=== PATIENT | male | born 1955 | race Caucasian/White ===

== ENCOUNTER 2021-05-11 11:06 | Outpatient (CLI) | payer MEDICARE, OTHER ==
[2021-05-11 23:41] LABS: SARS-CoV-2 PCR by NAA Not Detected (NotDetected)
== END 2021-05-11 11:07 | disposition home or self-care (01) ==
LOC: CSHLAB 11:06
PROVIDERS: ATTEND Surgery
DX: Z20.822 Contact with and (suspected) exposure to COVID-19 (principal); C09.8 Malignant neoplasm of overlapping sites of tonsil
CPT/HCPCS: U0003; U0005

== ENCOUNTER 2021-05-16 06:03 | Day surgery (SDC) | payer MEDICARE, OTHER ==
[2021-05-12 16:13] VITALS: BMI 29.4
[2021-05-16] MEDS ORDERED: Lidocaine 1% MPF 2 ML VIAL ONE (06:40)
[2021-05-16] MEDS ORDERED: Bupivacaine 0.25% HCL 30 ML VIAL ONE (06:43)
[2021-05-16] MEDS ORDERED: EPINEPHrine 1 MG/ML AMP ONE (06:43)
[2021-05-16] MEDS ORDERED: Heparin 10,000 UNITS/ 10 ML VIAL ONE (06:51)
[2021-05-16] MEDS ORDERED: PROPOFOL 20 ML ONE (06:56)
[2021-05-16] MEDS ORDERED: Fentanyl 100 MCG/2 ML VIAL ONE (06:56)
[2021-05-16] MEDS ORDERED: Lidocaine 1% PF 5 ML VIAL ONE (06:58)
[2021-05-16] MEDS ORDERED: PHENYLEPHRINE-NS 100 MCG/ML 10 ML SYRINGE ONE (07:15)
[2021-05-16] MEDS ORDERED: Dexamethasone 20 MG/5 ML VIAL ONE ×2 (07:16→07:17)
[2021-05-16] MEDS ORDERED: Ondansetron PF 4 MG/2 ML Vial ONE (07:31)
[2021-05-16] MEDS ORDERED: HYDROcodone/Acetaminophen 5/325 mg Tablet PO PRN (07:56)
== END 2021-05-16 08:57 | disposition home or self-care (01) ==
LOC: CSHSDC 06:03
PROVIDERS: ATTEND Surgery
DX: C09.8 Malignant neoplasm of overlapping sites of tonsil (principal); Z79.899 Other long term (current) drug therapy
CPT/HCPCS: 76000; C1788; J0171; J0690; J1100; J1642; J1644; J2405; J2704; J3010; S0020

== ENCOUNTER 2022-03-06 08:46 | Outpatient (CLI) | payer MEDICARE, OTHER ==
[2022-03-06] MEDS ORDERED: Iopamidol 300 61% 100 ML VIAL FS ONE (15:23)
== END 2022-03-06 08:47 | disposition home or self-care (01) ==
LOC: CSHCT 08:46
PROVIDERS: ATTEND Internal Medicine Hematology & Oncology
DX: C09.8 Malignant neoplasm of overlapping sites of tonsil (principal); R59.0 Localized enlarged lymph nodes; Z98.890 Other specified postprocedural states; M47.812 Spondylosis without myelopathy or radiculopathy, cervical region
CPT/HCPCS: 70491; 82565; Q9967